=== PATIENT | male | born 1950 | race Caucasian/White ===

== ENCOUNTER 2016-03-20 05:28 | Inpatient (IN) | payer BC ==
[2016-03-14 12:33] VITALS: BMI 42.0
--- NOTE | 2016-03-14 13:12 | PAT Medication Instructions ---
Service Date Mar 14, 2016. Current Home Medication List Aspirin (Aspirin Ec), 325 MG PO QAM Calcium Carbonate (Tums), 1-2 TAB PO PRN Cholecalciferol (Vitamin D3), 1 TAB PO QAM Lisinopril (Zestril), 20 MG PO QAM Metformin Hcl (Glucophage), 500 MG PO QAM Metformin Hcl (Glucophage), 1,000 MG PO QPM Multivitamin (Multivitamin), 1 TAB PO QAM Naproxen (Aleve), 220-440 MG PO PRN Medication Instructions For Your Scheduled Surgery - Check with surgeon for instructions: Aspirin (Aspirin Ec), 325 MG PO QAM Naproxen (Aleve), 220-440 MG PO PRN - Hold the following medications 48 hours prior to surgery: Metformin Hcl (Glucophage), 500 MG PO QAM Metformin Hcl (Glucophage), 1,000 MG PO QPM - Hold the following medications the morning of surgery: Multivitamin (Multivitamin), 1 TAB PO QAM Lisinopril (Zestril), 20 MG PO QAM Cholecalciferol (Vitamin D3), 1 TAB PO QAM Calcium Carbonate (Tums), 1-2 TAB PO PRN - Take the following medications as scheduled the night before surgery: Calcium Carbonate (Tums), 1-2 TAB PO PRN If you have any questions please call us at [phone] (Geovanna Reis PA-C) or [phone] or [phone]
--- NOTE | 2016-03-14 13:47 | DIAGNOSTIC IMAGING REPORT ---
CHEST 2 VIEWS ROUTINE HISTORY: Preop. Cough. COMPARISON: None. FINDINGS: The lungs are clear. Cardiac silhouette is normal in size. No pleural effusions. No pneumothorax. IMPRESSION: No acute process. Electronically signed by: Milan Thomas M.D. 03/14/2016 1:45 PM Dictated Date/Time: 03/14/2016 1:44 PM
[2016-03-14 13:58] LABS: BASO % 0.7 %; BASO ABS # 0.09 K/uL (0-0.2); COMPLETE YES; EOS % 3.3 %; HEMATOCRIT 47.1 % (42-52); IG% 0.9 %; LYMPH % 24.5 %; MEAN CELL VOLUME 91.1 fL (80-100); MEAN CORPUSCULAR HEMOGLOBIN 30.4 pg (25-34); MEAN CORPUSCULAR HGB CONC 33.3 g/dl (32-36); MEAN PLATELET VOLUME 9.9 fL (7.4-10.4); NEUT % 63.6 %; PLATELET COUNT 352 K/uL (130-400); RED BLOOD COUNT 5.17 M/uL (4.7-6.1); WHITE BLOOD COUNT 12.22 K/uL (4.8-10.8)
[2016-03-14 14:02] LABS: URINE APPEARANCE CLEAR (CLEAR); URINE BILIRUBIN NEG (NEG); URINE COLOR YELLOW; URINE EPITHELIAL CELL AUTO 0-5 /lpf (0-5); URINE NITRITE NEG (NEG); URINE PH 5.5 (4.5-7.5); UROBILINOGEN NEG (NEG)
[2016-03-14 14:03] LABS: PROTHROMBIN TIME (PATIENT) 10.7 SECONDS (9.0-12.0)
[2016-03-14 14:05] LABS: MANUAL MICROSCOPIC REQUIRED? NO; REVIEW REQ? NO
[2016-03-14 14:24] LABS: BUN/CREATININE RATIO 14.5 (10-20); CALCIUM 9.9 mg/dl (8.5-10.1); CREATININE 1.3 mg/dl (0.60-1.40); POTASSIUM 4.5 mmol/L (3.5-5.1)
--- NOTE | 2016-03-17 12:25 | HISTORY & PHYSICAL EXAMINATION ---
DATE OF ADMISSION: 03/20/2016 CHIEF COMPLAINT: Inability to walk, stand, weakness of lower extremity, paresthesias, numbness and tingling. HISTORY OF PRESENT ILLNESS: Killian is a delightful gentleman. He is a 65-year-old diabetic male with low back pain, claudication, lower extremity difficulty, walking intolerance. PAST MEDICAL HISTORY: Diabetes, hypertension, colon carcinoma, morbid obesity. PAST SURGICAL HISTORY: Appendectomy, cholecystectomy. ALLERGIES: Negative. CURRENT MEDICATIONS: Metformin, lisinopril. SOCIAL HISTORY: He is with 3 children. Ongoing tobacco. Moderately active. REVIEW OF SYSTEMS: Negative for fevers, sweats, chills, any bowel and bladder issues. Denies chest pain, palpitations. No asthma, wheezing, no nausea, vomiting. No urgency, frequency, dysuria. No memory loss, confusion. OBJECTIVE: VITAL SIGNS: He is 5 foot 10, 290. Blood pressure 130/80. Temperature was not taken. GENERAL: He is alert, oriented, mentation normal, appropriately dressed. HEAD, EYES, EARS, NOSE, AND THROAT EXAMINATION: Essentially normal. HEART: Normal S1, S2, no S3. LUNGS: Clear to auscultation. No rales, rhonchi or wheezing. INTEGUMENTARY: Skin system no warmth, erythema or breakdown. ABDOMEN: Soft, nontender, no referred pain to the lumbar spine. He has pain with percussion lumbar spine, particularly L4-L5 and L3-L4. He has decreased range of motion. He has pain with percussion, loss of motion with side bending. He has a slight gait abnormality, walking intolerance, slight numbness and tingling. His reflexes are diminished in the knee jerk and Achilles reflexes. His plain x-rays were evaluated demonstrating his spondylolisthesis 4 on . MRI demonstrated spondylolisthesis 4 on with severe stenosis 3-4 and 2-3. IMPRESSION: A 65-year-old gentleman with spinal stenosis lumbar spine and instability with spondylolisthesis 4 on . DISPOSITION: He is having surgery coming up on Sunday [facility], lumbar spine laminectomy 2-3, 3-4, 4-5 and more than likely instrumentation and fusion of the spondylolisthesis at L4-5.
[2016-03-20] VITALS (9 sets, daily range): BP systolic 128–168; BP diastolic 74–88; PULSE 81–111; TEMP 36.3–36.8; O2SAT 93–98; BMI 42.0
[~2016-03-20] VITALS: Ht 177.8 cm; Wt 133.6 kg
[~2016-03-20 05:28] MED LIST: ASPI325T39 PO; CALC500C3 PO; CHOL1000 PO; GLC/500 PO; LISI-725 PO; METF-384 PO; MULT-506 PO; NAPR1TAB9 PO
[2016-03-20] MEDS ORDERED: CEFAZOLIN 3000 MG/65 ML D5W 65 ML IV SCH (06:00)
[2016-03-20] MEDS ORDERED: NSS 1000ML IV SCH (06:00)
[2016-03-20] MEDS ORDERED: ONDANSETRON INJ 2 MG/ML 2 ML VIAL ONE (06:52)
[2016-03-20] MEDS ORDERED: NEOSTIGMINE METHYLSULFATE 5 MG/5 ML SYR ONE (06:52)
[2016-03-20] MEDS ORDERED: SUCCINYLCHOLINE CHLORIDE 20 MG/ML 10 ML VIAL IV ONE ×2 (06:52→09:57)
[2016-03-20] MEDS ORDERED: LIDOCAINE HCL 2% 2 ML VIAL (20MG/ML) ONE (06:52)
[2016-03-20] MEDS ORDERED: EpHEDrine SULFATE INJ 50 MG/ML AMP ONE (06:52)
[2016-03-20] MEDS ORDERED: GLYCOPYRROLATE INJ 0.2 MG/ML VIAL ONE (06:52)
[2016-03-20] MEDS ORDERED: PROPOFOL IV EMULSION 10 MG/ML 20 ML VIAL IV ONE (06:52)
[2016-03-20] MEDS ORDERED: DEXAMETHASONE SOD INJ 4 MG/ML VIAL ONE (06:52)
[2016-03-20] MEDS ORDERED: PHENYLEPHRINE HCL INJ 10 MG/ML VIAL ONE ×2 (06:52→09:39)
[2016-03-20] MEDS ORDERED: ROCURONIUM BROMIDE 10 MG/ML 5 ML VIAL ONE ×2 (06:52→09:39)
[2016-03-20] MEDS ORDERED: MIDAZOLAM HCL 1 MG/ML 2ML VIAL ONE (06:53)
[2016-03-20] MEDS ORDERED: FENTANYL CITRATE INJ 50 MCG/1 ML 2 ML VIAL ONE (06:53)
--- NOTE | 2016-03-20 07:19 | History & Physical Bridge Note ---
H&P Re-Evaluation Bridge Note: I have examined the patient, reviewed the History & Physical and in the interval since the performance of the History & Physical I have noted the following changes of clinical significance: No changes noted
[2016-03-20] MEDS ORDERED: HYDROmorphone INJ 2 MG/ML SYR/VIAL ONE ×2 (07:55→11:13)
[2016-03-20] MEDS ORDERED: FENTANYL CITRATE INJ 50 MCG/1 ML 2 ML VIAL IV PRN (08:00)
[2016-03-20] MEDS ORDERED: HYDROmorphone INJ 1 MG/ML SYR IV PRN ×2 (08:00→10:15)
[2016-03-20] MEDS ORDERED: EpHEDrine SULFATE INJ 50 MG/ML AMP IV PRN (08:00)
[2016-03-20] MEDS ORDERED: ATROPINE SULFATE 0.1 MG/ML 5ML SYR IV PRN (08:00)
[2016-03-20] MEDS ORDERED: ONDANSETRON INJ 2 MG/ML 2 ML VIAL IV PRN ×2 (08:00→10:15)
[2016-03-20] MEDS ORDERED: VANCOMYCIN HCL 1000MG/20ML VIAL TOP ONE (09:12)
[2016-03-20] MEDS ORDERED: THROMBIN FOR SOLN 20000 UNIT KIT TOP ONE (09:12)
[2016-03-20] MEDS ORDERED: BACITRACIN 50000 UNIT VIAL IR ONE (09:12)
[2016-03-20] MEDS ORDERED: GELATIN SPONGE SZ 100 TOP ONE (09:12)
[2016-03-20] MEDS ORDERED: BUPIVACAINE/EPINEPHRINE 0.5% MPF 1:200,000 30 ML VIAL INJ ONE (09:12)
[2016-03-20] MEDS ORDERED: HYDROmorphone INJ 2 MG/ML SYR/VIAL IV PRN (10:15)
[2016-03-20] MEDS ORDERED: OXYCODONE/ACETAMINOPHEN 5-325 TAB PO PRN (10:15)
[2016-03-20] MEDS ORDERED: ACETAMINOPHEN 325 MG TAB PO PRN (10:15)
[2016-03-20] MEDS: SODIUM CHLORIDE 0.9% 1000ML 1,000 ML IV SCH ×2 (10:15→22:33)
[2016-03-20] MEDS ORDERED: MAGNESIUM HYDROXIDE SUSP 30 ML UDC PO PRN (10:15)
[2016-03-20] MEDS ORDERED: PROMETHAZINE HCL INJ 12.5 MG in SODIUM CHLORIDE 0.9% 50ML 50 ML IV PRN (10:15)
[2016-03-20] MEDS ORDERED: LORAZEPAM 1 MG TAB PO PRN (10:15)
[2016-03-20] MEDS ORDERED: LORAZEPAM INJ 1 MG in SYRINGE 0.5 ML IV PRN (10:15)
[2016-03-20] MEDS ORDERED: METOCLOPRAMIDE HCL INJ 5 MG/ML 2 ML VIAL IV PRN (10:15)
--- NOTE | 2016-03-20 10:20 | [facility] Post Operative Brief Note ---
Immediate Operative Summary Operative Date Mar 20, 2016. Pre-Operative Diagnosis Spinal Stenosis Lumbar Spine and Instability with Spondylolisthesis L4 on L5. Post-Operative Diagnosis Spinal Stenosis Lumbar Spine and Instability with Spondylolisthesis L4 on L5. Procedure(s) Performed Laminectomy and fusion Surgeon Dr. Sam Khoury Funeral Counselor Surgeon(s) Peter Carlisle PA-C Findings severe stenosis Complication(s) None Disposition Recovery Room / PACU
--- NOTE | 2016-03-20 10:26 | DIAGNOSTIC IMAGING REPORT ---
INTRAOPERATIVE RADIOGRAPH CLINICAL HISTORY: L2-L5 laminectomy. Fluoroscopy time: 3 seconds. FINDINGS: A single spot fluoroscopic image of the lower lumbar spine is presented. A surgical probe projects posteriorly at the level of L5. Findings suggest laminectomy throughout the imaged lumbar spine. A surgical drain is likely in place. IMPRESSION: Single fluoroscopic image from a lumbar laminectomy procedure as above. See operative report for detailed findings. Electronically signed by: Antonio Shelley M.D. 03/20/2016 10:24 AM Dictated Date/Time: 03/20/2016 10:23 AM
[2016-03-20] MEDS ORDERED: IV FLUIDS COMPLETED PRN (11:00)
--- NOTE | 2016-03-20 11:03 | OPERATIVE REPORT ---
DATE OF OPERATION: 03/20/2016 PREOPERATIVE DIAGNOSIS: Severe stenosis lumbar spine L2-3, L3-4, L4-5, minor instability 4-5 and 2-3. PROCEDURE: Included a laminectomy 2-5 lumbar spine. It is a 4 level laminectomy. SURGEON: Dr. Khoury. ERP DEVELOPER: Peter Carlisle PA-C. COMPLICATIONS: Zero. BLOOD LOSS: 560. ANESTHETIC: General. Sponge and needle count correct at the close of the procedure. No pedicle screws used during the case. It was a bone fusion out on the transverse processes from 3 down to 5. The patient was taken to the operating room and general intubated anesthetic provided to the patient, placed prone, prepped, draped sterile. We made a skin incision from 2 to 5 dissecting the soft tissue in the same plane. A fairly obese individual, was fairly deep wound. We put in a deep self-retaining retractor. We carefully dissected the dura at L4-5 and L3-4 up at L2-3 including all of 2, 3, 4 and 5. There was a significant amount of epidural bleeding, soft tissue bleeding. We controlled to best of our ability including blood pressure and all sorts of techniques and did get through the surgery quite readily. I was very pleased with the decompression of the neural elements. We then assessed the stability of the spine. I felt with radiographic criteria, along with visualization, along with testing some motion segments, I felt he was relatively stable or actually quite stable. I did not feel that instrumentation would add anything to his improvement. We then bone grafted out over the transverse processes from L2, 3, 4 and 5. So that would be L2-3, L3-4, L4-5. We then irrigated thoroughly with about a liter of fluids We packed in the bone. We packed in the vancomycin powder. Hemovac drain. Closed layer to layer fashion, 1 Vicryl, 2-0 and staple gun, sterile dressing applied. The patient returned to PACU stable. No apparent interoperative complications. I attest to the content of the Intraoperative Record and any orders documented therein. Any exceptio ns are noted below.
--- NOTE | 2016-03-20 11:08 | Anesthesiology Progress Note ---
Anesthesia Post Op Note Date & Time Mar 20, 2016 at 11:07 Vital Signs Pain Intensity: 0 Vital Signs Past 12 Hours Date Time Temp Pulse Resp B/P Pulse Ox O2 Delivery O2 Flow Rate FiO2 03/20/16 11:00 98 16 164/86 94 Nasal Cannula 4 03/20/16 10:50 97 16 155/87 96 Nasal Cannula 4 03/20/16 10:40 93 16 143/83 99 Mask 15 03/20/16 10:30 85 16 138/77 99 Mask 15 03/20/16 10:23 36.4 85 16 160/95 98 Mask 15 03/20/16 06:00 36.8 88 22 168/88 94 Room Air Notes Mental Status: alert / awake / arousable, participated in evaluation Pt Amnestic to Procedure: Yes Nausea / Vomiting: adequately controlled Pain: adequately controlled Airway Patency, RR, SpO2: stable & adequate BP & HR: stable & adequate Hydration State: stable & adequate Anesthetic Complications: no major complications apparent
[2016-03-20] MEDS ORDERED: NURSING VERBAL MED ORDER ONE (11:45)
[2016-03-20] MEDS ORDERED: GLUCOSE 10 TABS/TUBE PO PRN (12:15)
[2016-03-20] MEDS ORDERED: GLUCOSE 40% GEL 15 GM TUBE PO PRN (12:15)
[2016-03-20] MEDS ORDERED: DEXTROSE 50% 50 ML SYR IV PRN (12:15)
[2016-03-20] MEDS ORDERED: GLUCAGON FOR INJ 1 MG VIAL SQ PRN (12:15)
[2016-03-20] MEDS ORDERED: PHARMACY GLYCEMIC MGMT CONSULT PRN (12:15)
[2016-03-20] MEDS ORDERED: PNEUMOCOCCAL POLYSACCHARIDES 25 MCG/0.5 ML VIAL/SYR IM. ONE (12:30)
[2016-03-20] MEDS ORDERED: PNEUMOCOCCAL ADMINISTRATION CHARGE ONE (12:30)
--- NOTE | 2016-03-20 12:38 | Pharmacy Progress Note ---
Glycemic Control Intl Consult Date of Service Mar 20, 2016. Scope Glycemic Pharmacist consulted by Dr Khoury on 03/20/16 for glycemic control and to write orders per [facility] inpatient glycemic control protocol Objective Weight (Kilograms): 133.600 Accuchecks BSG (last 24hrs): Test 03/20/16 06:14 03/20/16 11:14 03/20/16 12:05 Bedside Glucose 182 mg/dl (70-99) 261 mg/dl (70-99) 279 mg/dl (70-99) HbA1c No records found; HbA1c on order for 03/21/16 with AM labs Recent Pertinent Medications Outpatient Anti-diabetic Regimen: * Metformin 500mg AM + 1000mg PM * A1c = Unknown, on order for 03/21/16 with AM labs Risk Factors for Insulin Resistance: * Steroids: Dexamethasone 10mg IV q8 x 5 doses; he received Dexamethasone 8mg IV x 1 pre-op * Infection: N/A; on post-op Ancef 2g IV q8 x 3 doses * Pressors: N/A * IVF: NS @ 80 mL/hr * Recent Surgery: s/p laminectomy on 03/20/16 * Diet: Regular diet * Mechanical Ventilation: N/A Assessment & Plan ASSESSMENT: * ADA & AACE recommend a goal blood sugar range 140-180 mg/dl for the majority of critically ill & non-critically ill patients. However, more stringent targets may be selected in individual cases. PLAN FOR INPATIENT GLYCEMIC CONTROL: * Correctional Insulin with NOVOLOG / REGULAR per scale ACHS or Q6hrs while NPO * Goal Range: Low 140 mg/dL - High 180 mg/dL * Correction Factor: 20 mg/dL/unit * Nutritional / Prandial insulin per carb ratio of 1 unit per 6 grams CHO consumed * Continue Metformin 500mg qAM breakfast and 1000mg qPM dinner * Patient is s/p laminectomy today on IV Dexamethasone x 5 doses. Resumed home dose of metformin. Weight-based Novolog ordered for now. Plan to monitor blood glucose closely to adjust CF and/or CR as appropriate. No basal insulin at this time. * A1c ordered for 03/21/16 to assist with continued glycemic management * Please note that the plan above was derived based on current level of insulin resistance and hospital stress. These recommendations are appropriate for inpatient admission only. Plan of care upon discharge will need to be reassessed to avoid potential outpatient hypo/hyperglycemia. Thank you.
[2016-03-20] MEDS: KETOROLAC TROMETHAMINE 30 MG/ML VIAL IV SCH ×2 (13:25→18:08)
[2016-03-20] MEDS: INSULIN ASPART 100 UNITS/ML 3 ML PEN SC SCH ×3 (13:29→20:57)
[2016-03-20] MEDS: DEXAMETHASONE INJ 10 MG in SYRINGE 0 ML IV SCH (16:00)
[2016-03-20] MEDS: CEFAZOLIN IV 2,000 MG in DEXTROSE 5% 50ML 50 ML IV SCH (16:45)
[2016-03-20] MEDS: OXYCODONE/ACETAMINOPHEN 5-325 TAB PO PRN (16:47)
[2016-03-20] MEDS: METFORMIN HCL 500 MG TAB PO SCH (18:08)
[2016-03-21] MEDS: CEFAZOLIN IV 2,000 MG in DEXTROSE 5% 50ML 50 ML IV SCH ×2 (00:09→09:02)
[2016-03-21] MEDS: DEXAMETHASONE INJ 10 MG in SYRINGE 0 ML IV SCH ×4 (00:09→23:29)
[2016-03-21] MEDS: KETOROLAC TROMETHAMINE 30 MG/ML VIAL IV SCH ×3 (00:17→12:03)
[2016-03-21] MEDS: INSULIN ASPART 100 UNITS/ML 3 ML PEN SC SCH ×6 (00:31→21:31)
[2016-03-21 03:31] VITALS: BP 141/81; PULSE 86; TEMP 36.6; O2SAT 95
[2016-03-21] MEDS ORDERED: BISACODYL 5 MG TABEC PO PRN (06:00)
[2016-03-21] MEDS ORDERED: BISACODYL 10 MG SUPP PR PRN (06:00)
[2016-03-21] MEDS ORDERED: NURSING VERBAL MED ORDER ONE (06:00)
[2016-03-21 06:51] LABS: HEMATOCRIT 36.7 % (42-52)
[2016-03-21 06:52] VITALS: BP 103/61; PULSE 95; TEMP 36.6; O2SAT 94
[2016-03-21 07:44] LABS: ESTIMATED AVERAGE GLUCOSE 186 mg/dl; HA1C FLAG Normal (Normal)
--- NOTE | 2016-03-21 07:47 | PROGRESS NOTE ---
DATE: 03/21/2016 SUBJECTIVE: Alert, oriented, pain control. OBJECTIVE: Vital signs stable. Moves all extremities. No chest pain or shortness of breath. Neurologically intact. Vital signs stable, 36.7 hematocrit. ASSESSMENT: Multiple level decompression laminectomy of the spine and fusion of the spine without instrumentation. DISPOSITION: We will get Killian up and ambulatory today. Short walks are appropriate, does not need to overdo things. He will be tentatively discharged tomorrow the 18 improved stable condition. I put an order for [facility] as I think it is appropriate to get some home health care for Killian when he returns home tomorrow.
--- NOTE | 2016-03-21 07:55 | Anesthesiology Progress Note ---
Anesthesia Post Op Note Date & Time Mar 21, 2016 at 07:54 Vital Signs Pain Intensity: 4.0 Vital Signs Past 12 Hours Date Time Temp Pulse Resp B/P Pulse Ox O2 Delivery O2 Flow Rate FiO2 03/21/16 06:52 36.6 95 18 103/61 94 Room Air 03/21/16 03:31 36.6 86 16 141/81 95 Room Air 03/20/16 23:50 Room Air 03/20/16 23:21 36.4 81 16 131/74 93 Room Air Notes Mental Status: alert / awake / arousable, participated in evaluation Pt Amnestic to Procedure: Yes Nausea / Vomiting: adequately controlled Pain: adequately controlled Airway Patency, RR, SpO2: stable & adequate BP & HR: stable & adequate Hydration State: stable & adequate Anesthetic Complications: no major complications apparent
[2016-03-21] MEDS: METFORMIN HCL 500 MG TAB PO SCH ×2 (09:03→17:56)
[2016-03-21] MEDS: ASPIRIN 325 MG ECTAB PO SCH (09:03)
[2016-03-21] MEDS: POLYETHYLENE (MIRALAX) 17 GM PACK PO SCH (09:03)
[2016-03-21] MEDS: MULTIVITAMIN TAB PO SCH (09:04)
[2016-03-21] MEDS: LISINOPRIL 20 MG TAB PO SCH (09:04)
[2016-03-21 10:09] VITALS: BP 180/75; PULSE 111; O2SAT 95
[2016-03-21 11:11] VITALS: BP 152/83; PULSE 94; TEMP 36.6; O2SAT 92
[2016-03-21] MEDS ORDERED: LANTUS PER UNIT CHARGE SQ ONE (11:40)
[2016-03-21 13:48] VITALS: Ht 177.8 cm; Wt 133.6 kg
--- NOTE | 2016-03-21 13:55 | Pharmacy Progress Note ---
Glycemic: Assessment & Plan Date of Service Mar 21, 2016. Assessment & Plan * POD 1 s/p spine surgery. BSGs ranging 139 - 341 mg/dl over the past 24hrs. * Pt on a course of Decadron 10 mg IV with last dose at 0000 on 03/22/16. * Will add Lantus x1 to aid in covering long-acting steroid. Use weight based dosing with consideration for significant stressor from steroid. * Pt may require additional Lantus tomorrow d/t long-acting effects of DXM. * Tighten Novolog parameters in an effort to achieve better glycemic control post-op. Will narrow BSG goal range to 110 - 150mg/dl. * Continue Metformin which was restarted yesterday. Would recommend optimizing dose of Metformin on an outpatient basis if pt can tolerate. * A1c from today was 8.1% indicating suboptimal control of BSGs. Recommend pt f /u with outpatient provider to adjust diabetes regimen and provide education. PLAN FOR INPATIENT GLYCEMIC CONTROL: * Basal insulin: Add - Lantus 20 units x 1 now * Correctional Insulin: Novolog Correction per scale ACHS Goal Range: Low 110 mg/dL - High 150 mg/dL Tighten - Correction Factor: 15 mg/dL/unit * Prandial insulin: Tighten - Per carb ratio of 1 unit per 5 grams CHO consumed Pharmacy will continue to monitor patient daily and write orders per [facility] inpatient glycemic control protocol. Thanks. * Please note that the plan above was derived based on current level of insulin resistance and hospital stress. These recommendations are appropriate for inpatient admission only. Plan of care upon discharge will need to be reassessed to avoid potential outpatient hypo/hyperglycemia.
[2016-03-21 15:13] VITALS: BP 145/80; PULSE 105; TEMP 36.7; O2SAT 93
--- NOTE | 2016-03-21 18:45 | Discharge Instructions ---
Discharge Instructions Admission Reason for Admission: Lumbar Spinal Stenosis Discharge Discharge Diagnosis / Problem: stenosis Discharge Goals Goal(s): Improve function Activity Recommendations Activity Limitations: as noted below Lifting Limitations: until after follow-up appointment Exercise/Sports Limitations: until after follow-up appointment May Resume Sexual Activity: after follow-up appointment Shower/Bathe: keep incision dry Driving or Machine Use: . Current Hospital Diet Patient's current hospital diet: Diabetes Type 2 Diet Discharge Diet Recommended Diet: Regular Diet Procedures Procedures Performed: L2-L5 Laminectomy with L4-L5 Fusion Pending Studies Studies pending at discharge: no Laboratory Results Hemoglobin A1c Test 03/21/16 06:12 Range/Units Estimated Average Glucose 186 mg/dl Hemoglobin A1c 8.1 H 4.5-5.6 % Medical Emergencies . Who to Call and When: Medical Emergencies: If at any time you feel your situation is an emergency, please call 911 immediately. . Non-Emergent Contact Non-Emergency issues call your: Surgeon Call Non-Emergent contact if: your pain is unusual for you, you have any medication questions . "Provider Documentation" section prepared by Sam Khoury. VTE Core Measure Inpt VTE Proph given/why not?: Treatment not tolerated
[2016-03-21] MEDS: OXYCODONE/ACETAMINOPHEN 5-325 TAB PO PRN (21:32)
[2016-03-21 23:32] VITALS: BP 129/70; PULSE 89; TEMP 36.7; O2SAT 94
[2016-03-22] MEDS ORDERED: INSULIN ASPART 100 UNITS/ML 3 ML PEN SC SCH (02:00)
[2016-03-22 06:58] VITALS: BP 146/79; PULSE 85; TEMP 36.4; O2SAT 94
[2016-03-22] MEDS: LISINOPRIL 20 MG TAB PO SCH (07:20)
[2016-03-22] MEDS: METFORMIN HCL 500 MG TAB PO SCH (07:20)
[2016-03-22] MEDS: ASPIRIN 325 MG ECTAB PO SCH (07:20)
[2016-03-22] MEDS: MULTIVITAMIN TAB PO SCH (07:20)
[2016-03-22] MEDS: OXYCODONE/ACETAMINOPHEN 5-325 TAB PO PRN ×2 (07:21→11:12)
[2016-03-22] MEDS: POLYETHYLENE (MIRALAX) 17 GM PACK PO SCH (07:21)
[2016-03-22] MEDS: INSULIN ASPART 100 UNITS/ML 3 ML PEN SC SCH (07:25)
[2016-03-22 08:00] VITALS: BP 142/84; PULSE 97; TEMP 36.8; O2SAT 96
[2016-03-22 08:03] VITALS: O2SAT 96
--- NOTE | 2016-03-22 08:11 | DISCHARGE SUMMARY ---
SUBJECTIVE: Minimal complaints of pain. Alert, oriented, no chest pain, shortness of breath, no calf tenderness, no confusion. OBJECTIVE: Vital signs stable. Hematocrit 36.7, hemoglobin 12.3, wound clean. ASSESSMENT: Status post lumbar spine surgery, multiple level decompression and fusion in a gentleman. DISPOSITION: Will get him home later today. Instructions, precautions given. Careful with bending, stooping and lifting. Careful with walking, no driving. Instructions given in the office. Instructions given in the hospital. Prescriptions are on his chart. We should see him back in 10-12 days.
[2016-03-22 10:08] VITALS: BP 142/84; PULSE 97; TEMP 36.8; O2SAT 96
--- NOTE | 2016-03-22 10:21 | Pharmacy Progress Note ---
Glycemic: Assessment & Plan Date of Service Mar 22, 2016. Assessment & Plan Item Value Date Time Bedside Glucose 216 mg/dl H 03/22/16 0651 Bedside Glucose 210 mg/dl H 03/22/16 0144 Bedside Glucose 250 mg/dl H 03/21/16 2043 Bedside Glucose 265 mg/dl H 03/21/16 1632 Bedside Glucose 295 mg/dl H 03/21/16 1108 Bedside Glucose 236 mg/dl H 03/21/16 0753 Bedside Glucose 239 mg/dl H 03/21/16 0649 PLAN: Fasting BSG trends improvement this am. Completed DXM 10mg IV q8h last evening. Will give supplemental Lantus 10 units sq x 1 this am. Anticipate d/ c later today. I expect BSGs to improve slowly over time due to steroid administration. * Oral diabetes agent: Continue metformin 500mg po q breakfast, 1000mg po Q dinner * Basal insulin: Lantus 10 units sq x 1 dose this am, had Lantus 20 units x 1 yesterday. * Correctional Insulin: Novolog Correction per scale ACHS & 0200 Goal Range: Low 110 mg/dL - High 150 mg/dL Correction Factor: 15 mg/dL/unit * Prandial insulin: Per carb ratio of 1 unit per 5 grams CHO consumed Pharmacy will continue to monitor patient daily and write orders per [facility] inpatient glycemic control protocol. Thanks. * Please note that the plan above was derived based on current level of insulin resistance and hospital stress. These recommendations are appropriate for inpatient admission only. Plan of care upon discharge will need to be reassessed to avoid potential outpatient hypo/hyperglycemia.
[2016-03-22] MEDS ORDERED: LANTUS PER UNIT CHARGE SQ ONE (10:30)
== END 2016-03-22 11:34 | disposition home health service (06) | DRG 460 ==
LOC: ENRESERVDT → ENRESERVTM → C.ACU 05:28 → C.3E 10:21 → OBSVTOIN 10:57
PROVIDERS: ADMIT Orthopaedic Surgery Orthopaedic Surgery of the Spine; ATTEND Orthopaedic Surgery Orthopaedic Surgery of the Spine
PROC: 0SG1071 Fusion of 2 or more Lumbar Vertebral Joints with Autologous Tissue Substitute, Posterior Approach, Posterior Column, Open Approach (ICD-10-PCS; principal; 2016-03-20 07:30)
DX: M48.06 Spinal stenosis, lumbar region (principal); Z68.41 Body mass index [BMI] 40.0-44.9, adult; M43.16 Spondylolisthesis, lumbar region; M53.2X6 Spinal instabilities, lumbar region; I10 Essential (primary) hypertension; E11.9 Type 2 diabetes mellitus without complications; F17.210 Nicotine dependence, cigarettes, uncomplicated; K21.9 Gastro-esophageal reflux disease without esophagitis; E66.01 Morbid (severe) obesity due to excess calories; Z23 Encounter for immunization; Z79.1 Long term (current) use of non-steroidal anti-inflammatories (NSAID); Z79.82 Long term (current) use of aspirin; Z79.84 Long term (current) use of oral hypoglycemic drugs; Z79.899 Other long term (current) drug therapy

== ENCOUNTER 2022-04-27 07:59 | Observation (INO) ==
--- NOTE | 2022-04-12 12:51 | PAT Medication Instructions ---
Medication Instructions Date of Service April 12, 2022 Home Medications aspirin 325 mg tablet 325 mg PO QAM glipizide 5 mg tablet 5 mg PO BID indomethacin 50 mg capsule 50 mg PO BID PRN gout lisinopril 20 mg tablet 20 mg PO QAM metformin 1,000 mg tablet 1,000 mg PO BID multivitamin 1 tab PO QAM semaglutide 0.25 mg or 0.5 mg (2 mg/3 mL) subcutaneous pen injector (Ozempic) 0.25 mg subcut UD Continue as directed semaglutide 0.25 mg or 0.5 mg (2 mg/3 mL) subcutaneous pen injector (Ozempic) 0.25 mg subcut UD ASK your surgeon for instructions indomethacin 50 mg capsule 50 mg PO BID PRN gout ASK your prescriber and surgeon aspirin 325 mg tablet 325 mg PO QAM DO NOT take the morning of surgery glipizide 5 mg tablet 5 mg PO BID lisinopril 20 mg tablet 20 mg PO QAM metformin 1,000 mg tablet 1,000 mg PO BID multivitamin 1 tab PO QAM Take evening before surgery glipizide 5 mg tablet 5 mg PO BID metformin 1,000 mg tablet 1,000 mg PO BID Other Notes If you have any questions please call us at [phone] or [phone] or [phone] or [phone]
--- NOTE | 2022-04-14 10:23 | Anesthesiology Consultation ---
Date of Service April 14, 2022 Assessment & Plan (1) Encounter for pre-operative examination: - COVID screening: Per assessment on 04/14: No known COVID-19 positive contacts or current COVID-19 related symptoms. Travel screen negative. Patient vaccinated. At surgeon discretion if preop Covid testing being done. - Outpatient joint assessment: Pt currently scheduled for inpatient pathway. If surgeon requests review for outpatient joint pathway, patient is not recommended candidate for outpatient joint program from anesthesia standpoint. - Check BSG AM DOS - Hx failed SAB: Per patient, multiple attempts with SAB for right TKA was unsuccessful- told d/t history of back fusion. Discussed SAB vs GA. Anesthesiologist to evaluate/discuss further AM DOS. Chart Review Chart Review: Acceptable Risk for Surgery and Patient seen in Pre Admission Testing Teaching & Discussion Pre-Anesthesia Teaching/Discussion Notes: Instructed NPO after midnight before surgery,except medications with 15 cc of water. Medication instructions provided according to the PAT guidelines. History Surgery Operation Date: 04/27/22 12:30 Proposed Procedures p Left Total Knee Arthroplasty - Albaro Grady MD Height/Weight Height: 5 ft 10 in Weight: 132.7 kg Allergies Allergy/AdvReac Type Severity Reaction Status Date / Time procaine AdvReac Unknown *r/t a Verified 04/12/22 11:37 family allergy* pt never had a problem Medications Home Medications Medication Instructions Recorded Confirmed Last Taken aspirin 325 mg tablet 325 mg PO QAM 03/31/22 04/12/22 Unknown glipizide 5 mg tablet 5 mg PO BID 03/31/22 04/12/22 Unknown indomethacin 50 mg capsule 50 mg PO BID PRN gout 03/31/22 04/12/22 Unknown lisinopril 20 mg tablet 20 mg PO QAM 03/31/22 04/12/22 Unknown metformin 1,000 mg tablet 1,000 mg PO BID 03/31/22 04/12/22 Unknown multivitamin 1 tab PO QAM 03/31/22 04/12/22 Unknown semaglutide 0.25 mg or 0.5 mg (2 0.25 mg subcut UD 04/12/22 04/12/22 Unknown mg/3 mL) subcutaneous pen injector (Ozempic) Past Medical History Medical History Degenerative disc disease Diabetes mellitus, type 2 GERD (gastroesophageal reflux disease) hx Gout History of colon cancer (~2002) History of COVID-19 12/2021- mild cold symptoms Hyperlipidemia Hx - no current medications Hypertension Kidney stones Osteoarthritis Spinal stenosis Transient ischemic attack (TIA) 10/2021, no deficits/issues since Exercise / Class Metabolic Activity II 4-5 Yardwork/Stairs/Walk up hill Past Family History Family History Other No family history of adverse response to anesthesia Past Surgical History Surgical History H/O Achilles tendon repair left History of appendectomy History of colonoscopy Hx of lithotripsy x13 (same stone) S/P colon resection (~2002) S/P lumbar fusion S/P total knee replacement right Past Anesthesia History No Family Hx of Anesthesia Complications and Other (Failed spinal with previous Right TKA felt r/t hx of back fusion) History of PONV No Hx of PONV and No Hx of Motion Sickness Social History Smoking Status: Never smoker Do You Dip or Chew Tobacco: No Hx Alcohol Use: Yes alcohol intake frequency: holidays/special occasions only Hx Substance Use: No substance use type: does not use Review of Systems Chronic sinus drainage-related cough x years, unchanged. Patient denies chest pain, shortness of breath, dyspnea on exertion, fever, chills, wheezing, palpitations. Physical Exam Vital Signs VITALS BP 109/72 P 91 TEMP 98.3 SP02 95%RA RESP 16 PHYSICAL Full cervical extension range of motion. Full TMJ range of motion. TMD 4 finger breaths Mallampati Score 2 Dentition: missing molars Lungs: clear throughout to auscultation Cardiac: regular rate and rhythm, no murmurs noted Spine: normal Carotid arteries: negative bruit Extremities: no edema Lab Results Anesthesia Preop Results Results Anesthesia Widget: WBC 13.53 K/ul (4.8-10.8) H 04/14/22 Hgb 15.6 g/dl (14.0-18.0) 04/14/22 Hct 47.2 % (42.0-52.0) 04/14/22 Plt 353 K/uL (130-400) 04/14/22 Na 137 mmol/L (136-145) 04/14/22 K 4.9 mmol/L (3.5-5.1) 04/14/22 Cl 101 mmol/L (98-107) 04/14/22 CO2 29 mmol/L (21-32) 04/14/22 BUN 34 mg/dl (6-23) H 04/14/22 Creat 1.25 mg/dl (0.6-1.4) 04/14/22 Glucose Level 102 mg/dl (70-99(Fasting)) H 04/14/22 PT 10.9 Seconds (9.0-12.0) 04/14/22 PTT 28.8 Seconds (21.0-31.0) 04/14/22 INR 1.0 (0.9-1.1) 04/14/22 Blood Type O Positive 04/14/22 Antibody Screen NEGATIVE 04/14/22 Testing Laboratory Results Surgeon's office made aware of elevated WBC* 04/05/22 HGBA1C 6.2% Electrocardiogram Date: 04/14/22 NSR at 89bpm. Chest X-Ray Date: 04/14/22 FINDINGS: PA and lateral chest radiographs are compared to study dated 03/14/2016. The cardiomediastinal silhouette is top normal for projection. The lungs and pleural spaces are clear. There is no pneumothorax. The skeletal structures are osteopenic. The bony thorax appears intact. IMPRESSION: No active disease in the chest. Echocardiogram Date: 08/19/20 LVEF 50-55%. No RWMA. Grade I DD. Physiologic TR. COVID-19 Risk Screen Screening Information COVID-19 Screen Date: 04/14/22 Exposure 21 Days Family/Household +COVID Last 21 Days: No Exposure 10 Days Any COVID Exposure Last 10 Days: No Symptoms Last 10 Days Experienced COVID Sx Last 10 Days: No + COVID 0-90 Days COVID + in Last 0-90 Days: No
[~2022-04-27 07:59] MED LIST changes: +ACETAMINOPHEN 500 MG TAB PO SCH; -ASPI325T39 PO; +BUPIVACAINE 0.5 % 5 MG/1 ML PF 10ML VIAL ONE; +BUPIVACAINE LIPOSOME/PF 266 MG, BUPIVACAINE/EPINEPHRINE 50 ML, SODIUM CHLORIDE 0.9% 30 ... INFIL SCH; -CALC500C3 PO; -CHOL1000 PO; +CeleBREX 200 MG CAP PO SCH; +FAMOTIDINE 20 MG TAB PO SCH; -GLC/500 PO; -LISI-725 PO; +LR 500ML BOLUS, THEN 15ML/HR IV SCH; +LR 60ML/HR IV SCH; -METF-384 PO; +METOCLOPRAMIDE HCL 10 MG TABLET PO SCH; -MULT-506 PO; -NAPR1TAB9 PO; +ROPIVACAINE 0.5% 5 MG/ML 30 ML VIAL ONE; +TRANEXAMIC ACID 1,000 MG **IV Intra-op IV SCH
--- NOTE | 2022-04-27 08:30 | History & Physical Bridge Note ---
Date of Service April 27, 2022 History & Physical Bridge Note I have examined the patient, reviewed the History & Physical and in the interval since the performance of the History & Physical I have noted the following changes of clinical significance: no changes noted
[2022-04-27] MEDS ORDERED: fentaNYL citrate 100 MCG/2 ML VIAL ONE (09:03)
[2022-04-27] MEDS ORDERED: MIDAZOLAM HCL 1 MG/ML 2ML VIAL ONE ×2 (09:03→10:41)
[2022-04-27] MEDS ORDERED: ATROPINE SULFATE 0.1 MG/ML 10ML SYR IV PRN (09:18)
[2022-04-27] MEDS ORDERED: ePHEDrine sulfate 50 MG/ML AMP IV PRN (09:18)
[2022-04-27] MEDS ORDERED: fentaNYL citrate 100 MCG/2 ML VIAL IV PRN (09:18)
[2022-04-27] MEDS ORDERED: ONDANSETRON INJ 2 MG/ML 2 ML VIAL IV PRN ×2 (09:18→13:49)
[2022-04-27] MEDS ORDERED: BUPIVACAINE/EPINEPHRINE 0.25% 1:200,000 30 ML VIAL ONE (10:11)
[2022-04-27] MEDS ORDERED: SODIUM CHLORIDE 0.9% PF 50 ML VIAL ONE (10:11)
[2022-04-27] MEDS ORDERED: VANCOMYCIN HCL 1000MG/20ML VIAL ONE (10:12)
[2022-04-27] MEDS ORDERED: BUPIVACAINE LIPOSOME 1.3% 266 MG/20 ML VIAL ONE (10:12)
[2022-04-27] MEDS ORDERED: PROPOFOL IV EMULSION 10 MG/ML 20 ML VIAL IV ONE ×2 (10:49→12:11)
[2022-04-27] MEDS ORDERED: ONDANSETRON INJ 2 MG/ML 2 ML VIAL ONE (10:49)
[2022-04-27] MEDS ORDERED: ePHEDrine sulfate 50 MG/ML AMP ONE (10:49)
[2022-04-27] MEDS ORDERED: PHENYLEPHRINE 100MCG/ML 5ML SYR ONE (10:49)
[2022-04-27] MEDS ORDERED: KETOROLAC 30 MG/ML VIAL ONE (10:51)
[2022-04-27] MEDS ORDERED: DEXAMETHASONE SOD INJ 4 MG/ML VIAL ONE ×3 (10:51)
--- NOTE | 2022-04-27 12:52 | Operative Report ---
PG Post Operative Report Pre & Post Diagnosis Operation Date: 04/27/22 10:40 Pre-Op Diagnosis: Left Knee Advanced Degenerative Joint Disease Post-Op Diagnosis: Left Knee Advanced Degenerative Joint Disease I identified the patient and participated in the time-out.: Yes Procedure Operation Date: 04/27/22 10:40 Actual Procedures p Left Total Knee Arthroplasty(Left) - Albaro Grady MD Surgeon Albaro Grady MD Dispensary Attendant George Konwles PA-C Estimated Blood Loss 50 Findings Consistent with Post-Op Diagnosis Operative findings revealed advanced left knee DJD. He had extensive grade 4 ebbv-me-oahl disease of the medial femoral condyle medial tibial plateau with collapse of the bone on both sides. Moderate-sized knee joint effusion. Specimens Left knee sent for pathology Anesthesia Type Spinal MAC Complications none Disposition Accompanied Patient To Recovery: No Indications Patient is a 71-year-old fairly large gentleman said a long history of knee problems. He had a previous right knee replacement done in [place]. He is done pretty well from this but developed increased increasing pain and discomfort in his left knee. He failed all conservative measures. His pain was incapacitating his bleeding started toward the bone on the medial side of his knee. He elected proceed with total knee arthroplasty. Description of Procedure Operative implants consist of: 1 Biomet Vanguard size 70 left posterior stabilized femoral component. 2. Biomet size 79 tibial tray with a 15 x 80 mm modular extension. 3. 12 mm posterior stabilized polyethylene insert. 4. 31 x 8 all poly patella. The patient was taken the operating, identified, and placed on the operating table supine position protectors were properly padded. IV antibiotics tried by anesthesia team. Spinal anesthetic and been implemented holding area. A Saab catheter was placed in sterile fashion. Left thigh turn was then placed in the left lower extremities and prepped and draped in usual sterile fashion. The left leg was elevated exsanguinated with use of an Esmarch and tourniquet placed at 300 mmHg. An anterior approach left knee was then performed through a longitudinal incision centered over the patella. Sharp dissection Through subcutaneous tissue down the extensor mechanism. A medial parapatellar arthrotomy incision was made. Some subperiosteal dissection was carried out medially. The fat pad was resected from Neath patella tendon. Lateral patellofemoral ligament was released. Patella subluxated laterally and the knee was flexed. The osteophytes taken off distal femur. The ACL and PCL were then released from distal femur the tibia subluxated anteriorly. I then resected the tibial eminence. I entered the intramedullary canal of the tibia with the entry reamer and then reamed to a size 10 and [address] this the whole way down the canal. I used the intramedullary cutting guide to cut the proximal tibia. The tibia was then sized to a size 79. We then prepared this for a a 15 x 80 mm stem extension. I did ream up to a 16 to create a significant cement mantle. The trial implant was assembled and placed and fit quite nicely. Attention dr awn the femur. The distal femur with a sharp drop with intramedullary canal was suction. A left 6 3 valgus cutting guide was placed. This femoral cutting block was pinned in place. Distal femoral cut was made to take an additional 3 mm of bone off distal femur. The femur was then sized to a size 70. The AP cutting block was pinned parallel to the epicondylar axis which was 5 degrees of external rotation. The anterior cut, anterior chamfer, posterior cut, posterior chamfer cuts were made. The box cutting guide was placed in a just slight lateral and the box cut was made. The knee was flexed. The remnants of the medial and lateral menisci were excised. The osteophytes were taken off the posterior aspect the femur. Trial femoral component was placed. The tibial tray was placed. We trialed the knee and the 12 mm insert fit most appropriately. Attention drawn the patella. The patella was cleaned of all soft tissues. Patella thickness measured 23 mm in thickness and was cut down to 14. Was sized to a size 31 patella. The lug holes were drilled for 31 patella. The lateral osteophyte was removed. Patella button was placed. Knee was taken through range of motion patella tracked nicely with no thumbs test. Attention drawn to place the permanent components. Nupathe all trial components were removed. Bone plug was placed in the distal femur to limit blood loss. I placed a cement restrictor in the proximal tibia to prevent cement extravagant cessation. A double batch Palacos G cement was mixed with an additional gram of vancomycin due to his large size and diabetes. A size 70 left posterior stabilized femoral component was then cemented in place followed by the 79 the tibial tray, the polyethylene insert, and the 31 x 8 all Paller patella. The knee was brought out in full extension till cement hardened. Final cement check was then performed. Pericapsular tissues were injected with total of 100 cc of combination of 20 cc of Exparel, 30 cc normal saline, 50 cc of quarter percent Marcaine with epinephrine. Patient did receive 1 g tranexamic acid. The tendon was let down for turn time 74 minutes. Hemostasis reduced electrocautery. Extensor mechanism closed with combination 1 PDS suture #1 Vicryl suture in a [id number] fashion. Extensor mechanism checked found to be intact with subcutaneous tissue then closed with 2 Dexon suture in a buried interrupted fashion. Skin was closed skin anh. Leg was then cleaned and dried and sterile dressed with Xeroform, 4 x 4's, sterile cast padding and an Edgar bandage were applied. The patient then transferred to the recovery room in stable condition. Patient tolerated procedure well and there were no complications. George Knowles, my physician laboratory assistant, was present for the entire procedure. His assistance was essential and required for appropriate patient positioning, prepping and draping, surgical exposure, performing the technical details of the operation, placement the implants, closure of the wound, and placement of the sterile bandage. I attest to the content of the Intraoperative Record and any orders documented therein. Any exceptions are noted below.
--- NOTE | 2022-04-27 13:28 | Anesthesiology Progress Note ---
Date of Service April 27, 2022 Anesthesia Post Procedure Vital Signs Vital Signs: Temp Pulse Resp BP Pulse Ox O2 Del Method O2 Flow Rate 04/27/22 13:20 98.4 F 95 H 18 128/88 97 Nasal Cannula 4 04/27/22 13:10 98.4 F 91 H 14 140/66 93 Nasal Cannula 4 04/27/22 13:00 98.4 F 91 H 12 127/65 93 Nasal Cannula 4 04/27/22 12:50 98.4 F 90 15 113/61 93 Nasal Cannula 4 04/27/22 12:43 98.4 F 97 H 14 111/67 95 Oxymask 5 04/27/22 08:25 98.1 F 100 H 20 115/94 95 Room Air Pain Intensity Left Knee: Pain Intensity: 0 Transfer of Care Handoff Completed per policy Notes Mental Status: alert / awake / arousable and participated in evaluation Patient Amnestic to Procedure: Yes Nausea / Vomiting: adequately controlled Pain: adequately controlled Airway Patency, RR, SpO2: stable & adequate BP & HR: stable & adequate Hydration State: stable & adequate Neuraxial Anesthesia: was administered and sensory block is resolving Anesthetic Complications: no major complications apparent and Pt Satisfied with anesthetic care
[2022-04-27] MEDS ORDERED: ALUMINUM/MAGNESIUM SUSP 30 ML UDC PO PRN (13:49)
[2022-04-27] MEDS ORDERED: NALOXONE HCL 0.4 MG/1 ML VIAL/CARP IV PRN (13:49)
[2022-04-27] MEDS ORDERED: MAGNESIUM HYDROXIDE SUSP 30 ML UDC PO PRN (13:49)
[2022-04-27] MEDS ORDERED: DEXTROSE 50% 50 ML SYRINGE IV PRN (13:49)
[2022-04-27] MEDS ORDERED: CARBOHYDRATES FOR HYPOGLYCEMIA PO PRN (13:49)
[2022-04-27] MEDS ORDERED: GLUCOSE 40% GEL 15 GM TUBE PO PRN (13:49)
[2022-04-27] MEDS ORDERED: METOCLOPRAMIDE HCL INJ 5 MG/ML 2 ML VIAL IV PRN (13:49)
[2022-04-27] MEDS ORDERED: PHARMACY GLYCEMIC MGMT CONSULT PRN (13:49)
[2022-04-27] MEDS ORDERED: bisacodyL 10 MG SUPP PR PRN (13:49)
[2022-04-27] MEDS ORDERED: HYDROmorphone INJ 0.5 MG/0.5 ML SYR IV PRN (13:49)
[2022-04-27] MEDS ORDERED: NON-FORMULARY MEDICATION (Semaglutide [Ozempic] 0.25 mg or 0.5 mg (2 mg/3 mL) Pen Injector SQ SCH (13:49)
[2022-04-27] MEDS ORDERED: GLUCOSE 10 TAB/TUBE PO PRN (13:49)
[2022-04-27] MEDS ORDERED: GLUCAGON FOR INJ 1 MG VIAL SQ PRN (13:49)
[2022-04-27] MEDS ORDERED: ONDANSETRON 4 MG OD TAB PO PRN (14:01)
--- NOTE | 2022-04-27 14:22 | XRay Report ---
LEFT KNEE 2 VIEWS History: Left total knee arthroplasty. Degenerative arthritis. Postop. FINDINGS: The patient is status post a left total knee arthroplasty. The hardware is intact. No fract ure or dislocation. Skin anh are in place. IMPRESSION: Left total knee arthroplasty. No evidence for hardware complication. ACT 112: Negative or not required by law. Electronically signed by: Milan Thomas M.D. 04/27/2022 2:19 PM
--- NOTE | 2022-04-27 14:31 | Pharmacy Report ---
Pharmacy Glycemic Short Note 2 - Date of Service April 27, 2022 - Glycemic Short BSG Results (Last 24 hours): 04/27/22 04/27/22 08:32 12:46 POC Glucose 186 H 172 H OUTPATIENT ANTIDIABETIC REGIMEN: * glipizide 5 mg po BID * metformin 1 gm PO BID * Ozempic PRN * HbA1C ordered ASSESSMENT: * Mr Nickerson is a 71 y/o M with a PMH of T2DM who presents for L knee replacement. Patient received 10 mg of dexamethasone intraoperatively around 10-11 AM (confirmed via anesthesiology report) * BSG prior to surgery was 186 mg/dL. * Start Lantus 50 units SQ x 1 (between weight-based stress of 2 and 3)- this is aggressive due to high-dose steroids + physiologic needs (on two oral agents and fasting today > 150 mg/dL). * Novolog weight-based stress of 3 due to steroids. Overnight checks to ensure adequate control. * Dexamethasone 10 mg IV x 1 ordered for tomorrow as well. Will dose Lantus based upon patient's response today. PLAN FOR INPATIENT GLYCEMIC CONTROL: * Hold outpatient oral diabetes medications * Basal insulin * Lantus 50 units SQ x 1 with subsequent evaluation 04/28/22 * Bolus insulin * NovoLog per scale ACHS or Q6hrs while NPO * Goal Range: Low 110 mg/dL - High 140 mg/dL * Correction Factor: 15 mg/dL/unit * Nutritional / Prandial insulin per carb ratio of 1 unit per 5 grams CHO consumed
[2022-04-27] MEDS: SODIUM CHLORIDE 0.9% 1000ML 1,000 ML IV SCH (14:33)
[2022-04-27] MEDS ORDERED: LANTUS PER UNIT CHARGE SQ ONE (15:00)
[2022-04-27] MEDS: INSULIN ASPART PER UNIT SC SCH ×3 (15:01→22:37)
[2022-04-27] MEDS: ACETAMINOPHEN 500 MG TAB PO SCH ×2 (15:06→22:34)
[2022-04-27] MEDS: KETOROLAC TROMETHAMINE 15 MG/ML VIAL IV SCH ×2 (16:31→22:34)
[2022-04-27] MEDS: ASCORBIC ACID 500 MG TAB PO SCH (17:27)
[2022-04-27] MEDS ORDERED: TRANEXAMIC ACID / 0.7% NACL 1,000 MG/100 ML BAG IV SCH (18:45)
[2022-04-27] MEDS: oxyCODONE HCL IR 5 MG TAB (IMMEDIATE RELEASE) PO PRN (20:28)
[2022-04-27] MEDS: ceFAZolin 2000MG 2,000 MG/15 ML SYR IV SCH (20:28)
[2022-04-27] MEDS: ASPIRIN 81 MG ECTAB PO SCH (20:29)
[2022-04-27] MEDS: DOCUSATE SODIUM 100 MG CAP PO SCH (20:29)
[2022-04-27] MEDS: DOCUSATE SODIUM/SENNA 50/8.6MG TAB PO SCH (20:30)
[2022-04-27] MEDS ORDERED: glipiZIDE 5 MG TAB PO SCH (21:00)
[2022-04-27] MEDS ORDERED: SENNA 8.6 MG TAB PO SCH (21:00)
[2022-04-28] MEDS: INSULIN ASPART PER UNIT SC SCH ×3 (00:52→08:32)
[2022-04-28] MEDS: ceFAZolin 2000MG 2,000 MG/15 ML SYR IV SCH (03:06)
[2022-04-28] MEDS: oxyCODONE HCL IR 5 MG TAB (IMMEDIATE RELEASE) PO PRN ×2 (03:10→10:42)
[2022-04-28] MEDS: KETOROLAC TROMETHAMINE 15 MG/ML VIAL IV SCH ×2 (04:34→08:37)
[2022-04-28] MEDS: SODIUM CHLORIDE 0.9% 1000ML 1,000 ML IV SCH ×2 (05:54→05:55)
[2022-04-28] MEDS: ACETAMINOPHEN 500 MG TAB PO SCH (06:17)
[2022-04-28 06:51] LABS: Hematocrit (blood only) 38.5 % (42.0-52.0); Hemoglobin 12.7 g/dl (14.0-18.0); Mean Corpuscular Hemoglobin 29.7 pg (25.0-34.0); Mean Corpuscular Volume 90.2 fL (80.0-100.0); Mean Platelet Volume 9.3 fL (9.4-12.4); Platelet Count 312 K/uL (130-400); RDW Coefficient of Variation 13.3 % (11.5-14.5); RDW Standard Deviation 43.8 fL (36.4-46.3); Red Blood Count 4.27 M/uL (4.70-6.10); White Blood Count 17.69 K/ul (4.8-10.8)
[2022-04-28 07:08] LABS: BUN Creatinine Ratio 26.8 (10-20); Calcium 8.9 mg/dl (8.5-10.1); Creatinine Clr Calc Pharmacy 73.7 ml/min; Est GFR (African American) 65.9 ml/min; Est GFR (Non-African American) 56.9 ml/min; Potassium 4.9 mmol/L (3.5-5.1)
--- NOTE | 2022-04-28 07:26 | Progress Notes ---
DATE OF SERVICE: 04/28/2022. SUBJECTIVE: A 71-year-old gentleman, postoperative day 1 from left knee replacement. He is doing we ll. Reports minimal pain. No chest pain or shortness of breath. Not feeling dizzy or lightheaded. Hoping to go home today. OBJECTIVE: VITAL SIGNS: Temperature 36.5. Vital signs are stable. GENERAL: Shows a pleasant middle-aged male. He is sitting up in bed, looks entirely comfortable. LUNGS: Clear to auscultation. HEART: Regular rate and rhythm. ABDOMEN: Soft, nontender, nondistended. EXTREMITIES: Grossly neurovascularly intact except as follows. Examination of the left leg reveals the leg to be well aligned. Dressing is clean, dry and intact. He can dorsiflex and plantarflex his foot appropriately. He can do a straight leg raise. LABORATORY DATA: Hemoglobin 12.7. Hematocrit 38.5. Electrolytes are stable. ASSESSMENT: A 71-year-old gentleman, postoperative day 1 from left knee replacement, doing pretty we ll. Pain is controlled. He is neurologically intact. PLAN: 1. DVT prophylaxis includes thigh-high TEDs, SCDs, and aspirin twice a day. 2. PT/OT, weightbear as tolerated. Left total knee protocol. 3. Pain control, doing okay with current pain regimen. 4. Disposition: Plan to discharge to home with some home health if he does okay in therapy today. Job ID: [id number]
[2022-04-28] MEDS ORDERED: dexAMETHasone 10 MG in SYRINGE 0 ML IV SCH (08:00)
[2022-04-28] MEDS: ASCORBIC ACID 500 MG TAB PO SCH (08:32)
[2022-04-28] MEDS: DOCUSATE SODIUM 100 MG CAP PO SCH (08:33)
[2022-04-28] MEDS: DOCUSATE SODIUM/SENNA 50/8.6MG TAB PO SCH (08:33)
[2022-04-28] MEDS: ASPIRIN 81 MG ECTAB PO SCH (08:34)
[2022-04-28] MEDS ORDERED: TAMSULOSIN HCL 0.4 MG CAP PO SCH (09:00)
[2022-04-28] MEDS ORDERED: LANTUS PER UNIT CHARGE SQ ONE (09:00)
[2022-04-28] MEDS ORDERED: MULTIVITAMIN TAB PO SCH (09:00)
[2022-04-28] MEDS ORDERED: lisinopril 20 MG TAB PO SCH (09:00)
[2022-04-28] MEDS ORDERED: NON-FORMULARY MEDICATION (Multivitamin tablet) PO SCH (09:00)
[2022-04-28 09:07] LABS: Estimated Average Glucose 143 mg/dl; Hemoglobin A1C 6.6 % (4.5-5.6)
--- NOTE | 2022-05-02 13:46 | Discharge Summary ---
Date of Service May 02, 2022 Discharge Data Procedures Performed Operation Date: 04/27/22 10:40 Actual Procedures p Left Total Knee Arthroplasty(Left) - Albaro Grady MD Hospital Course (1) Status post total left knee replacement: This is a 71 year old patient admitted on 04/27/22 and underwent total knee arthroplasty. He tolerated the procedure well and there were no complications. Transferred to the PACU post op and later to the orthopedic floor for further care. He was given ancef for antibiotic prophylaxis. He was also given RODRIGUEZ stockings, SCDs, and aspirin for DVT prophylaxis. Hemoglobin, hematocrit, and vital signs were monitored during his hospital stay and remained stable. Did not require any blood transfusions. There were no complications during his hospital stay. By post op day #1 the patient was tolerating a diabetic diet, pain was reasonably controlled with oral pain medicine, and he was participating in physical therapy. On post op day #1 the patient was discharged home and set up with home health care. He was given printed discharge instructions including prescriptions for extra strength tylenol, aspirin, cefadroxil, ketorolac, zofran, senokot, flomax, and oxycodone. Continue physical therapy, weight bearing as tolerated. Continue RODRIGUEZ stockings. Follow up approximately 2 weeks post op or sooner if there are problems or concerns. Coding Level of Care Code None Diagnoses Status post total left knee replacement Z96.652
== END 2022-04-28 11:17 | disposition home health service (06) ==
LOC: 3E 07:59 → ASU 07:59
DX: Z79.899 Other long term (current) drug therapy; Z79.82 Long term (current) use of aspirin; Z88.4 Allergy status to anesthetic agent; Z79.84 Long term (current) use of oral hypoglycemic drugs; M17.12 Unilateral primary osteoarthritis, left knee